=== PATIENT | male | born 2000 | race Caucasian/White ===

== ENCOUNTER 2021-06-17 22:33 | Emergency (ER) | payer OTHER ==
[~2021-06-17] VITALS: Ht 180.3 cm; Wt 74.7 kg
[~2021-06-17 22:33] MED LIST: IBUPROFEN 200200 M1 PO
[2021-06-18] MEDS ORDERED: COMPAZINE10 M2 PO (00:55)
[2021-06-18 01:08] VITALS: BP 132/75
== END 2021-06-18 01:09 | disposition home or self-care (01) ==
LOC: M.ERS 22:33
DX: G43.909 Migraine, unspecified, not intractable, without status migrainosus (principal)